=== PATIENT | female | born 1975 | race Caucasian/White ===

== ENCOUNTER → 2016-10-12 | Outpatient (REF) | payer OTHER | LOC: M LAB REF 13:17 | PROVIDERS: ATTEND Obstetrics & Gynecology | DX: R30.0 Dysuria (principal); N94.10 Unspecified dyspareunia ==

== ENCOUNTER → 2016-12-08 | Outpatient (REF) | payer BC | LOC: M LAB REF 13:01 | PROVIDERS: ATTEND Advanced Practice Midwife | DX: R30.0 Dysuria (principal); R10.2 Pelvic and perineal pain ==

== ENCOUNTER → 2019-05-09 | Outpatient (CLI) | payer BC ==
--- NOTE | 2019-05-09 13:47 | REP ---
MRI LEFT KNEE WITHOUT CONTRAST: HISTORY: Pain in the left knee. Sports injury. Audible pop. Swelling. No comparison imaging. Rule out ACL or meniscal tear. TECHNIQUE: Axial, coronal and sagittal imaging planes utilized. T1 proton density T2-weighted scans were included with and without fat saturation. MRI FINDINGS: There is extensive periarticular subcutaneous edema. A large complex multiloculated Crain's cyst is seen in the posteromedial popliteal soft tissues measuring up to 6.4 cm in diameter. There is a large joint effusion with some complex internal material consistent with proteinaceous content. There is no evidence of fluid-fluid level. There is no evidence of occult fracture. There is a small zone of marrow edema in the subcortical marrow of the upper and lower pole of the patella with overlying chondromalacia and articular cartilage fissuring. No full-thickness articular cartilage lesion is seen in the patella. There is a complete recent tear of the anterior cruciate ligament. Posterior cruciate ligament is intact. There is no evidence of lateral collateral ligament disruption. There is some thickening and increased signal intensity along the proximal and midportion of the medial collateral ligament suggesting partial tear of the medial collateral ligament. Patellar and quadriceps tendons are intact. There is no evidence of lateral meniscal tear. The medial meniscus is somewhat small but there is no evidence of displaced meniscal material or other evidence of medial meniscal tear. No loose body is appreciated. IMPRESSION: 1. Complete recent tear ACL. 2. Large joint effusion and large Crain's cyst with proteinaceous content. 3. 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 4. Findings suspicious for partial tear of the medial collateral ligament. Electronically Signed by Juan Laurent MD 05/09/2019 05:40 P
== END ==
LOC: M RAD 11:22
PROVIDERS: ATTEND Orthopaedic Surgery Hand Surgery
DX: M25.562 Pain in left knee (principal); M25.462 Effusion, left knee; M71.22 Synovial cyst of popliteal space [Baker], left knee; M22.42 Chondromalacia patellae, left knee; S83.502A Sprain of unspecified cruciate ligament of left knee, initial encounter; X58.XXXA Exposure to other specified factors, initial encounter; Y92.9 Unspecified place or not applicable

== ENCOUNTER → 2021-10-19 | Outpatient (REF) | payer BC | LOC: M LAB REF 17:39 | PROVIDERS: ATTEND Nurse Practitioner Adult Health | DX: R19.7 Diarrhea, unspecified (principal) ==

== ENCOUNTER 2023-03-25 06:55 | Day surgery (SDC) | payer OTHER ==
[~2023-03-25] VITALS: Ht 167.6 cm; Wt 81.2 kg
[~2023-03-25 06:55] MED LIST: ALPR0.5T3; AMPH1CAP16; BUPR150T12; NS 1,000 ML IV ONE; SERT50TA29
[2023-03-25] MEDS ORDERED: propofoL 200 MG/20 ML VIAL As Ordered ONE (07:45)
[2023-03-25 08:52] VITALS: TEMP 97
[2023-03-25 09:01] VITALS: BP 104/57; O2SAT 96
== END 2023-03-25 09:49 | disposition home or self-care (01) ==
LOC: M OPP 06:55
PROVIDERS: ATTEND Internal Medicine Gastroenterology
DX: Z12.11 Encounter for screening for malignant neoplasm of colon (principal); Z12.12 Encounter for screening for malignant neoplasm of rectum; K62.1 Rectal polyp; K64.8 Other hemorrhoids; K64.4 Residual hemorrhoidal skin tags; Z79.899 Other long term (current) drug therapy; Z87.891 Personal history of nicotine dependence